=== PATIENT | male | born 1975 ===

== ENCOUNTER 2020-10-09 19:03 | Observation (INO) ==
[2020-10-09] MEDS ORDERED: SODIUM CHLORIDE 0.9% 1,000 ML IV STA (19:53)
[2020-10-09] MEDS ORDERED: THIAMINE 200 MG/2 ML VIAL IV STA (19:53)
[2020-10-09 20:06] LABS: INR 1.1; PT Patient Result 12.4 SECS (10.5-12.0); Partial Thromboplastin Time 25.9 SECS (23.9-33.8)
[2020-10-09 20:12] LABS: Albumin 3.6 G/DL (3.4-5.0); Bilirubin,Total 8.3 MG/DL (0.2-1.0); Calcium 9.1 MG/DL (8.5-10.1); Osmolality,Calculated 263.5 MOS/KG (273-304); Potassium 3.1 MMOL/L (3.5-5.1); Total Protein 7.7 G/DL (6.4-8.2)
[2020-10-09 20:16] LABS: Basophils % 0.4 % (0.0-0.8); Eosinophils % 0.2 % (0.00-10.9); Hemoglobin 16.2 GM/DL (14.0-18.0); Immature Granulocytes % 0.4 %; Immature Granulocytes Absolute 0.02 #; Lymphocytes # 0.5 10*3/uL (1.4-4.0); Lymphocytes % 10.9 % (21.2-54.2); Mean Corpuscular HGB Conc 37.7 GM/DL (32-36); Mean Corpuscular Volume 97.9 FL (87-102); Mean Platelet Volume 11.3 FL (9.6-12.0); Monocytes % 6.4 % (1.7-12.7); Neutrophils % 81.7 % (38.7-73.9); Platelet Count 67 T/CUMM (130-400); Red Blood Count 4.39 MC/CUMM (3.8-5.5); White Blood Count 4.5 T/CUMM (4-12)
[2020-10-09 20:39] LABS: Band Neutrophils 3 % (0-10); Lymphocytes 10 % (20-55); Platelet Estimate Decreased; Segmented Neutrophils 80 % (50-85); Total Cells Counted 100
[2020-10-09 21:47] LABS: Barbiturates Screen,Urine Negative (Negative); Benzodiazepines Screen,Urine Negative (Negative); Cannabinoid Screen,Urine Negative (Negative); Opiate Screen,Urine Negative (Negative); Phencyclidine Screen,Urine Negative (Negative)
[2020-10-09] MEDS ORDERED: LORazepam 2 MG/1 ML VIAL IV PRN (23:18)
[2020-10-09] MEDS ORDERED: POTASSIUM CHLORIDE 20 MEQ TABLET PO STA (23:21)
[2020-10-09] MEDS ORDERED: MAGNESIUM SULF RIDER 2 GM/50 ML PREMIX IV ONE (23:21)
[2020-10-10] MEDS ORDERED: ZALEPLON 5 MG CAPSULE PO PRN (00:17)
[2020-10-10] MEDS ORDERED: hydrALAZINE 20 MG/1 ML VIAL IV PRN (00:17)
[2020-10-10] MEDS ORDERED: ACETAMINOPHEN 325 MG TABLET PO PRN (00:17)
[2020-10-10] MEDS ORDERED: guaiFENesin/DM ER 600-30 MG TABLET PO PRN (00:17)
[2020-10-10] MEDS ORDERED: diphenhydrAMINE CAP 25 MG CAPSULE PO PRN (00:17)
[2020-10-10] MEDS ORDERED: ONDANSETRON 4 MG/2 ML VIAL IV PRN (00:17)
[2020-10-10] MEDS ORDERED: GLUCAGON 1 MG VIAL IM PRN (00:17)
[2020-10-10] MEDS ORDERED: DOCUSATE SODIUM 100 MG CAPSULE PO PRN (00:17)
[2020-10-10] MEDS ORDERED: DEXTROSE 50% 25 GM/50 ML VIAL IV PRN (00:17)
[2020-10-10] MEDS: THIAMINE INJ 100 MG, FOLIC ACID INJ 1 MG, MULTIVITAMIN INJ 10 ML in DEXTROSE 5% NACL 0.... IV SCH (03:00)
[2020-10-10 05:44] LABS: Basophils % 0.4 % (0.0-0.8); Eosinophils % 0.6 % (0.00-10.9); Hematocrit 40.1 VOL% (42.0-52.0); Hemoglobin 14.9 GM/DL (14.0-18.0); Immature Granulocytes % 0.4 %; Immature Granulocytes Absolute 0.02 #; Lymphocytes # 0.6 10*3/uL (1.4-4.0); Lymphocytes % 13.3 % (21.2-54.2); Mean Corpuscular HGB Conc 37.2 GM/DL (32-36); Mean Corpuscular Volume 98.8 FL (87-102); Mean Platelet Volume 11.4 FL (9.6-12.0); Monocytes % 10.4 % (1.7-12.7); Neutrophils % 74.9 % (38.7-73.9); Platelet Count 56 T/CUMM (130-400); Red Blood Count 4.06 MC/CUMM (3.8-5.5); Red Cell Distribution Width 15.2 % (9.3-17.3); White Blood Count 4.8 T/CUMM (4-12)
[2020-10-10 05:50] LABS: Albumin 3.3 G/DL (3.4-5.0); Bilirubin,Total 8.5 MG/DL (0.2-1.0); Calcium 8.9 MG/DL (8.5-10.1); Osmolality,Calculated 264.2 MOS/KG (273-304); Potassium 3.3 MMOL/L (3.5-5.1); Total Protein 6.9 G/DL (6.4-8.2)
[2020-10-10 06:19] LABS: Platelet Estimate Decreased
[2020-10-10 06:21] LABS: Hepatitis B Core IgM Quant 0.07 Index; Hepatitis B Surface Ag Quant < 0.10 Index; Hepatitis B Surface Ag Result Non-Reactive (NonReactive); Hepatitis C Virus Ab Quant 0.18 Index; Hepatitis C Virus Ab Result Non-Reactive (NonReactive)
[2020-10-10] MEDS: NICOTINE 21 MG/24 HR PATCH TRANSDERM PRN ×2 (08:24→17:31)
[2020-10-10] MEDS: FOLIC ACID 1 MG TABLET PO SCH ×2 (08:24→20:38)
[2020-10-10] MEDS: THIAMINE 100 MG TABLET PO SCH ×2 (08:24→20:38)
[2020-10-10] MEDS: chlordiazePOXIDE 10 MG CAPSULE PO SCH ×3 (08:24→20:38)
[2020-10-10] MEDS: PANTOPRAZOLE 40 MG TABLET PO SCH (08:24)
[2020-10-10] MEDS: POTASSIUM CHLORIDE 20 MEQ TABLET PO SCH ×2 (08:24→20:38)
[2020-10-10] MEDS ORDERED: ENOXAPARIN 40 MG/0.4 ML SYRINGE SUBCUT SCH (09:00)
[2020-10-11] MEDS: THIAMINE INJ 100 MG, FOLIC ACID INJ 1 MG, MULTIVITAMIN INJ 10 ML in DEXTROSE 5% NACL 0.... IV SCH (01:31)
[2020-10-11 06:33] LABS: Basophils % 0.7 % (0.0-0.8); Eosinophils # 0.1 10*3/uL (0.0-0.87); Eosinophils % 2.2 % (0.00-10.9); Hematocrit 44.1 VOL% (42.0-52.0); Hemoglobin 15.4 GM/DL (14.0-18.0); Immature Granulocytes % 0.4 %; Immature Granulocytes Absolute 0.02 #; Lymphocytes # 0.9 10*3/uL (1.4-4.0); Lymphocytes % 20.7 % (21.2-54.2); Mean Corpuscular HGB Conc 34.9 GM/DL (32-36); Mean Corpuscular Volume 102.3 FL (87-102); Mean Platelet Volume 11.4 FL (9.6-12.0); Monocytes % 12.3 % (1.7-12.7); Neutrophils % 63.7 % (38.7-73.9); Platelet Count 70 T/CUMM (130-400); Red Blood Count 4.31 MC/CUMM (3.8-5.5); White Blood Count 4.6 T/CUMM (4-12)
[2020-10-11 06:48] LABS: Eosinophils 5 % (0-10); Lymphocytes 24 % (20-55); Platelet Estimate Decreased; Segmented Neutrophils 55 % (50-85); Total Cells Counted 100
[2020-10-11 07:00] LABS: Calcium 8.9 MG/DL (8.5-10.1); Potassium 3.7 MMOL/L (3.5-5.1)
[2020-10-11 08:26] VITALS: BP 145/86
[2020-10-11] MEDS: PANTOPRAZOLE 40 MG TABLET PO SCH (08:58)
[2020-10-11] MEDS: FOLIC ACID 1 MG TABLET PO SCH (08:58)
[2020-10-11] MEDS: THIAMINE 100 MG TABLET PO SCH (08:58)
[2020-10-11] MEDS: POTASSIUM CHLORIDE 20 MEQ TABLET PO SCH (08:58)
[2020-10-11] MEDS: chlordiazePOXIDE 10 MG CAPSULE PO SCH (08:58)
== END 2020-10-11 12:08 | disposition home or self-care (01) ==
LOC: N.ED 19:03 → N.EDINP 19:03 → N.4E 10-10 01:33
PROVIDERS: ADMIT Internal Medicine; ATTEND Internal Medicine

== ENCOUNTER 2020-11-07 22:24 | Observation (INO) ==
[2020-11-07] MEDS ORDERED: THIAMINE INJ 100 MG, FOLIC ACID INJ 1 MG, MAGNESIUM SULF INJ 2 GM, MULTIVITAMIN INJ 10 ... IV ONE (22:54)
[2020-11-07 23:09] LABS: Basophils # 0.1 10*3/uL (0.0-0.2); Basophils % 0.6 % (0.0-0.8); Eosinophils # 0.2 10*3/uL (0.0-0.87); Eosinophils % 1.2 % (0.00-10.9); Hematocrit 41.8 VOL% (42.0-52.0); Hemoglobin 14.9 GM/DL (14.0-18.0); Immature Granulocytes % 0.8 %; Lymphocytes # 2.6 10*3/uL (1.4-4.0); Lymphocytes % 20.8 % (21.2-54.2); Mean Corpuscular HGB Conc 35.6 GM/DL (32-36); Mean Corpuscular Volume 103.2 FL (87-102); Mean Platelet Volume 10.3 FL (9.6-12.0); Monocytes % 4.9 % (1.7-12.7); Neutrophils % 71.7 % (38.7-73.9); Platelet Count 146 T/CUMM (130-400); Red Blood Count 4.05 MC/CUMM (3.8-5.5); Red Cell Distribution Width 14.5 % (9.3-17.3); White Blood Count 12.3 T/CUMM (4-12)
[2020-11-07 23:22] LABS: Bacteria,Urine Occasional /HPF (Few); Barbiturates Screen,Urine Negative (Negative); Benzodiazepines Screen,Urine Positive (Negative); Bilirubin,Urine Negative (Negative); Blood, Urine Negative (Negative); Cannabinoid Screen,Urine Negative (Negative); Glucose,Urine (UA) Negative (Negative); Ketones,Urine Negative (Negative); Mucus,Urine Occasional /LPF (Occasional); Nitrite,Urine Negative (Negative); Opiate Screen,Urine Negative (Negative); Phencyclidine Screen,Urine Negative (Negative); Protein,Urine Negative; RBC,Urine 2 /HPF (0-4); Urine Appearance CLEAR (Clear); Urine Color Yellow (Yellow); Urine Specific Gravity 1.004 (1.001-1.035); Urine Urobilinogen < 2.0 EU/DL (0.2-1.0)
[2020-11-07 23:43] LABS: Albumin 3.3 G/DL (3.4-5.0); Calcium 8.4 MG/DL (8.5-10.1); Osmolality,Calculated 266.1 MOS/KG (273-304); Total Protein 7.8 G/DL (6.4-8.2)
[2020-11-07] MEDS ORDERED: SODIUM CHLORIDE 0.9% 1,000 ML IV STA (23:47)
[2020-11-07] MEDS ORDERED: POTASSIUM CHLORIDE RIDER 20 MEQ/100 ML PREMIX IV STA (23:50)
[2020-11-08] MEDS ORDERED: diphenhydrAMINE CAP 25 MG CAPSULE PO PRN (00:04)
[2020-11-08] MEDS ORDERED: ONDANSETRON 4 MG/2 ML VIAL IV PRN (00:04)
[2020-11-08] MEDS ORDERED: GLUCAGON 1 MG VIAL IM PRN (00:04)
[2020-11-08] MEDS ORDERED: guaiFENesin/DM ER 600-30 MG TABLET PO PRN (00:04)
[2020-11-08] MEDS ORDERED: hydrALAZINE 20 MG/1 ML VIAL IV PRN (00:04)
[2020-11-08] MEDS ORDERED: DOCUSATE SODIUM 100 MG CAPSULE PO PRN (00:04)
[2020-11-08] MEDS ORDERED: DEXTROSE 50% 25 GM/50 ML VIAL IV PRN (00:04)
[2020-11-08] MEDS ORDERED: PROMETHAZINE 25 MG/1 ML VIAL IM PRN (00:04)
[2020-11-08] MEDS ORDERED: NICOTINE 21 MG/24 HR PATCH TRANSDERM PRN (00:04)
[2020-11-08] MEDS ORDERED: ACETAMINOPHEN 325 MG TABLET PO PRN (00:04)
[2020-11-08] MEDS ORDERED: ZALEPLON 5 MG CAPSULE PO PRN (00:04)
[2020-11-08] MEDS: POTASSIUM CHLORIDE RIDER 10 MEQ/100 ML PREMIX IV SCH ×2 (00:20→01:20)
[2020-11-08 05:22] LABS: Basophils # 0.1 10*3/uL (0.0-0.2); Basophils % 0.7 % (0.0-0.8); Eosinophils # 0.2 10*3/uL (0.0-0.87); Hemoglobin 13.1 GM/DL (14.0-18.0); Immature Granulocytes % 0.7 %; Immature Granulocytes Absolute 0.05 #; Lymphocytes # 1.8 10*3/uL (1.4-4.0); Mean Corpuscular HGB Conc 35.4 GM/DL (32-36); Mean Corpuscular Volume 103.9 FL (87-102); Mean Platelet Volume 10.3 FL (9.6-12.0); Monocytes % 6.9 % (1.7-12.7); Neutrophils % 65.7 % (38.7-73.9); Platelet Count 125 T/CUMM (130-400); Red Blood Count 3.56 MC/CUMM (3.8-5.5); Red Cell Distribution Width 14.4 % (9.3-17.3); White Blood Count 7.6 T/CUMM (4-12)
[2020-11-08 05:47] LABS: Calcium 7.6 MG/DL (8.5-10.1); Osmolality,Calculated 275.5 MOS/KG (273-304); Potassium 2.9 MMOL/L (3.5-5.1)
[2020-11-08] MEDS ORDERED: POTASSIUM CHLORIDE RIDER 10 MEQ/100 ML PREMIX IV PRN (06:32)
[2020-11-08] MEDS ORDERED: POTASSIUM CHLORIDE 20 MEQ TABLET PO ONE (06:33)
[2020-11-08] MEDS: MULTIVITAMIN (CENTRUM) TABLET PO SCH ×2 (07:52→09:01)
[2020-11-08] MEDS: PANTOPRAZOLE 40 MG TABLET PO SCH ×2 (07:52→09:01)
[2020-11-08] MEDS ORDERED: THIAMINE INJ 100 MG, FOLIC ACID INJ 1 MG, MAGNESIUM SULF INJ 2 GM, MULTIVITAMIN INJ 10 ... IV ONE (09:00)
[2020-11-08] MEDS: FOLIC ACID 1 MG TABLET PO SCH ×2 (09:07→20:50)
[2020-11-08] MEDS: ENOXAPARIN 40 MG/0.4 ML SYRINGE SUBCUT SCH (09:07)
[2020-11-08] MEDS: LACTULOSE 20 GM/30 ML UDCUP PO SCH ×2 (09:07→20:50)
[2020-11-08] MEDS: THIAMINE 200 MG/2 ML VIAL IV SCH (09:39)
[2020-11-08] MEDS: ALBUTEROL/IPRATROPIUM 3 ML NEB RESP TX SCH ×2 (12:59→20:13)
[2020-11-08] MEDS ORDERED: LORazepam 0.5 MG TABLET PO PRN (13:42)
[2020-11-09] MEDS: ALBUTEROL/IPRATROPIUM 3 ML NEB RESP TX SCH ×3 (01:03→14:15)
[2020-11-09 04:47] LABS: Calcium 7.8 MG/DL (8.5-10.1); Osmolality,Calculated 272.5 MOS/KG (273-304); Potassium 2.9 MMOL/L (3.5-5.1)
[2020-11-09 04:49] LABS: % Iron Saturation 62.1 % (18-50)
[2020-11-09 04:53] LABS: Albumin 2.8 G/DL (3.4-5.0); Bilirubin,Direct 1.04 MG/DL (0.0-0.20); Bilirubin,Indirect 0.8 MG/DL (0.0-1.0); Bilirubin,Total 1.8 MG/DL (0.2-1.0); Total Protein 6.7 G/DL (6.4-8.2)
[2020-11-09 04:54] LABS: INR 1.1; PT Patient Result 11.9 SECS (10.5-12.0)
[2020-11-09 05:27] LABS: Hepatitis B Core IgM Quant < 0.05 Index; Hepatitis B Surface Ag Quant < 0.10 Index; Hepatitis B Surface Ag Result Non-Reactive (NonReactive); Hepatitis C Virus Ab Quant 0.07 Index; Hepatitis C Virus Ab Result Non-Reactive (NonReactive)
[2020-11-09] MEDS ORDERED: POTASSIUM CHLORIDE 20 MEQ TABLET PO PRN (07:51)
[2020-11-09] MEDS ORDERED: POTASSIUM CHLORIDE 20 MEQ/15 ML UDCUP PER TUBE PRN (07:51)
[2020-11-09] MEDS: MULTIVITAMIN (CENTRUM) TABLET PO SCH (09:10)
[2020-11-09] MEDS: FOLIC ACID 1 MG TABLET PO SCH (09:10)
[2020-11-09] MEDS: PANTOPRAZOLE 40 MG TABLET PO SCH (09:10)
[2020-11-09] MEDS: THIAMINE 200 MG/2 ML VIAL IV SCH (09:11)
[2020-11-09] MEDS: ENOXAPARIN 40 MG/0.4 ML SYRINGE SUBCUT SCH (09:11)
[2020-11-09] MEDS: LACTULOSE 20 GM/30 ML UDCUP PO SCH (09:11)
[2020-11-09] MEDS ORDERED: POTASSIUM CHLORIDE 20 MEQ/15 ML UDCUP PO ONE (09:19)
[2020-11-09 12:05] VITALS: BP 127/71
[2020-11-09 12:35] LABS: Basophils % 0.5 % (0.0-0.8); Eosinophils # 0.1 10*3/uL (0.0-0.87); Eosinophils % 1.3 % (0.00-10.9); Hematocrit 38.3 VOL% (42.0-52.0); Hemoglobin 13.6 GM/DL (14.0-18.0); Immature Granulocytes % 0.5 %; Immature Granulocytes Absolute 0.04 #; Lymphocytes % 12.5 % (21.2-54.2); Mean Corpuscular HGB Conc 35.5 GM/DL (32-36); Mean Corpuscular Volume 104.9 FL (87-102); Mean Platelet Volume 10.3 FL (9.6-12.0); Monocytes % 5.4 % (1.7-12.7); Neutrophils % 79.8 % (38.7-73.9); Platelet Count 126 T/CUMM (130-400); Red Blood Count 3.65 MC/CUMM (3.8-5.5); Red Cell Distribution Width 14.8 % (9.3-17.3); White Blood Count 7.7 T/CUMM (4-12)
[2020-11-12 18:21] LABS: Antinuclear Ab, S 0.1 U
[2020-11-13 14:26] LABS: Alpha-1-Antitrypsin, Serum 213 mg/dL (100 - 190)
== END 2020-11-09 15:35 | disposition home or self-care (01) ==
LOC: EDBD → EDUNIT# → N.EDINP 22:24 → N.ED 22:24 → SUATTDRO 11-08 00:04 → N.4E 11-08 02:25
PROVIDERS: ADMIT Internal Medicine; ATTEND Internal Medicine